=== PATIENT | male | born 1940 | race Caucasian/White ===

== ENCOUNTER 2017-04-09 06:38 | Day surgery (SDC) | payer OTHER ==
--- NOTE | ~2017-04-09 | EGD ---
EGD REPORT [facility] [address] [place]. [address] NAME: JOHN HERNANDEZ : [birth year] STATUS : REG [facility]#: [id number] AGE: 76 ADM/REG DATE : 04/09/17 MR#: [id number] REPORT SERV DATE: 04/09/17 DICTATED BY: KLAUDIA RUSSO DATE: 04/09/17 REPORT STATUS : Draft TRANSCRIBED BY: [employer] DATE: 04/09/17 [facility] Patient Name: John Hernandez Date of : 1940 Attending MD: KLAUDIA RUSSO, Procedure Date No Time: 04/09/2017 Procedure: Colonoscopy Indications: Chronic diarrhea Referring MD: LULU EL MD Medicines: Monitored Anesthesia Care Complications: No immediate complications. Estimated blood loss: None. Procedure: Pre-Anesthesia Assessment: - ASA Grade Assessment: IV - A patient with severe systemic disease that is a constant threat to life. After I obtained informed consent, the scope was passed under direct vision. Throughout the procedure, the patient's blood pressure, pulse, and oxygen saturations were monitored continuously. The CF [id number] was introduced through the anus and advanced to the terminal ileum. The colonoscopy was performed without difficulty. The patient tolerated the procedure well. The quality of the bowel preparation was good. The ileocecal valve, appendiceal orifice, terminal ileum and rectum were photographed. Findings: The perianal and digital rectal examinations were normal. A few small-mouthed diverticula were found in the sigmoid colon. Internal hemorrhoids were found, and they were Grade I (internal hemorrhoids that do not prolapse). Normal mucosa was found in the entire colon. Biopsies were taken with a cold forceps for histology. Verification of patient identification for the specimen was done. Estimated blood loss was minimal. The terminal ileum appeared normal. Impression: - Diverticulosis in the sigmoid colon. - Internal hemorrhoids. - Normal mucosa in the entire examined colon. Biopsied. - The examined portion of the ileum was normal. Recommendation: - Patient has a contact number available for emergencies. The signs and symptoms of potential delayed complications were discussed with the patient. Return to normal activities tomorrow. Written discharge instructions were provided to the patient. EGD REPORT [address] [address] NAME: JOHN EHRNANDEZ : [birth year] STATUS : REG [facility]#: [id number] AGE: 76 ADM/REG DATE : 04/09/17 MR#: [id number] REPORT SERV DATE: 04/09/17 DICTATED BY: KLAUDIA RUSSO DATE: 04/09/17 REPORT STATUS : Draft TRANSCRIBED BY: [employer] DATE: 04/09/17 - Return to previous diet. - Continue present medications. - Await pathology results. - Repeat colonoscopy is not recommended for screening purposes. Procedure Code(s): --- Professional --- 65955, Colonoscopy, flexible, proximal to splenic flexure; with biopsy, single or multiple Diagnosis Code(s): --- Professional --- K64.0, First degree hemorrhoids K57.30, Diverticulosis of large intestine without perforation or abscess without bleeding K52.9, Noninfective gastroenteritis and colitis, unspecified CPT copyright 2013 [employer]. All rights reserved. The codes documented in this report are preliminary and upon maintenance service supervisor review may be revised to meet current compliance requirements. KLAUDIA RUSSO, 04/09/2017 9:15 AM Number of Addenda: 0 Note Initiated On: 04/09/2017 8:36 AM Scope Withdrawal Time 0 hours 11 minutes 5 seconds [address] [place] [address]
--- NOTE | ~2017-04-09 | EGD ---
EGD REPORT [facility] [address] [place] [address] [address] NAME: JOHN HERNANDEZ : [birth year] STATUS : REG [facility]#: [id number] AGE: 76 ADM/REG DATE : 04/09/17 MR#: [id number] REPORT SERV DATE: 04/09/17 DICTATED BY: KLAUDIA RUSSO DATE: 04/09/17 REPORT STATUS : Draft TRANSCRIBED BY: [facility] DATE: 04/09/17 [facility] Patient Name: John Hernandez Date of : 1940 Attending MD: KLAUDIA RUSSO, Procedure Date No Time: 04/09/2017 Procedure: Upper GI endoscopy Indications: Endoscopy to assess diarrhea in patient suspected of having celiac disease Referring MD: LULU EL MD Medicines: Monitored Anesthesia Care Complications: No immediate complications. Estimated blood loss: None. Procedure: Pre-Anesthesia Assessment: - ASA Grade Assessment: IV - A patient with severe systemic disease that is a constant threat to life. After obtaining informed consent, the endoscope was passed under direct vision. Throughout the procedure, the patient's blood pressure, pulse, and oxygen saturations were monitored continuously. The GIF [id number] was introduced through the mouth, and advanced to the second part of duodenum. The upper GI endoscopy was accomplished without difficulty. The patient tolerated the procedure well. Findings: The esophagus was normal. Diffuse nodular mucosa was found in the gastric fundus and in the gastric body. Biopsies were taken with a cold forceps for histology. Verification of patient identification for the specimen was done. Estimated blood loss was minimal. The cardia and gastric fundus were normal on retroflexion. The exam of the stomach was otherwise normal. The examined duodenum was normal. Multiple biopsies were obtained in the 2nd part of the duodenum with cold forceps for histology. Impression: - Normal esophagus. - Nodular mucosa in the gastric fundus and in the gastric body. Biopsied. - Normal examined duodenum. - Multiple biopsies were obtained in the 2nd part of the duodenum. Recommendation: - Patient has a contact number available for emergencies. The signs and symptoms of potential delayed complications were discussed with the patient. Return to EGD REPORT [address] [address] NAME: JOHN HERNANDEZ : [birth year] STATUS : REG [facility]#: [id number] AGE: 76 ADM/REG DATE : 04/09/17 MR#: [id number] REPORT SERV DATE: 04/09/17 DICTATED BY: KLAUDIA RUSSO DATE: 04/09/17 REPORT STATUS : Draft TRANSCRIBED BY: [employer] DATE: 04/09/17 normal activities tomorrow. Written discharge instructions were provided to the patient. - Return to previous diet. - Continue present medications. - Resume Coumadin (warfarin) at prior dose today. Procedure Code(s): --- Professional --- 76084, Esophagogastroduodenoscopy, flexible, transoral; with biopsy, single or multiple Diagnosis Code(s): --- Professional --- K31.9, Disease of stomach and duodenum, unspecified R19.7, Diarrhea, unspecified CPT copyright 2013 [employer]. All rights reserved. The codes documented in this report are preliminary and upon accounting software specialist review may be revised to meet current compliance requirements. KLAUDIA RUSSO, 04/09/2017 9:14 AM Number of Addenda: 0 Note Initiated On: 04/09/2017 8:41 AM Scope Withdrawal Time 0 hours 0 minutes 0 seconds [address] [place] [address]
[~2017-04-09 06:38] MED LIST: ADVAIR250 INH; ALPHAGAN P0.1 % OPH; ASAB PO; COUMADIN3 MG PO; DUONEB INH; FISH OIL1200 MG PO; GLUCPH PO; K-99 PO; L40 PO; LAN125 PO; LOP100 PO; MULTIPLE VIT PO; PRAVACHOL40 MG PO; PRILO PO; PRINZIDE1 TA1 PO; SPIRIVA INH; STIOLTO RESPIMAT4 GM INH; TRAVATAN OPH; XALAT OPH; ZESTORETIC PO
[2017-04-09 07:12] LABS: INTERNATIONAL NORMAL RATI 1.9 UNITS (-); PROTIME (NOT ORD) 21.6 SEC (12.0-14.5)
== END 2017-04-09 23:59 | disposition home or self-care (01) ==
LOC: DMU 06:38
PROVIDERS: Anesthesiology; Internal Medicine Gastroenterology
PROC: 0DBE8ZX Excision of Large Intestine, Via Natural or Artificial Opening Endoscopic, Diagnostic (ICD-10-PCS; 2017-04-09)
PROC: 0DB98ZX Excision of Duodenum, Via Natural or Artificial Opening Endoscopic, Diagnostic (ICD-10-PCS; principal; 2017-04-09 07:30)
PROC: 0DB68ZX Excision of Stomach, Via Natural or Artificial Opening Endoscopic, Diagnostic (ICD-10-PCS; 2017-04-09 07:30)
DX: K52.9 Noninfective gastroenteritis and colitis, unspecified (principal); K31.7 Polyp of stomach and duodenum; K21.9 Gastro-esophageal reflux disease without esophagitis; I48.91 Unspecified atrial fibrillation; I25.10 Atherosclerotic heart disease of native coronary artery without angina pectoris; E11.51 Type 2 diabetes mellitus with diabetic peripheral angiopathy without gangrene; E11.40 Type 2 diabetes mellitus with diabetic neuropathy, unspecified; I10 Essential (primary) hypertension; E78.5 Hyperlipidemia, unspecified; Z95.1 Presence of aortocoronary bypass graft; Z95.5 Presence of coronary angioplasty implant and graft; Z88.5 Allergy status to narcotic agent; Z91.041 Radiographic dye allergy status; Z79.01 Long term (current) use of anticoagulants; Z79.899 Other long term (current) drug therapy; Z79.82 Long term (current) use of aspirin; Z90.49 Acquired absence of other specified parts of digestive tract; Z98.890 Other specified postprocedural states
CPT/HCPCS: 82962; 85610; 87493; 87493-59; 88305; A9270-GY